=== PATIENT | female | born 2000 | race Caucasian/White ===

== ENCOUNTER 2021-05-27 20:37 | Emergency (ER) | payer OTHER ==
[~2021-05-27 20:37] MED LIST: DIAMOX 250 MG250 MG PO
[2021-05-27 22:25] LABS: HEMOGLOBIN 14.8 gm/dl (12.3-15.3); RED BLOOD COUNT 4.92 M/UL (4.00-5.10); WHITE BLOOD COUNT 10.3 K/UL (4.5-11.0)
[2021-05-27 22:45] LABS: BUN/CREATININE RATIO 12 (0-10)
== END 2021-05-28 03:43 | disposition left against medical advice (07) ==
LOC: ER1 20:37
PROVIDERS: Physician Assistant
DX: R51.9 Headache, unspecified (principal); J45.909 Unspecified asthma, uncomplicated; F41.9 Anxiety disorder, unspecified; F17.200 Nicotine dependence, unspecified, uncomplicated
CPT/HCPCS: 70450; 80053; 85025; 99284